=== PATIENT | male | born 1955 | race Caucasian/White ===

== ENCOUNTER 2021-01-02 02:04 | Day surgery (SDC) | payer OTHER, SELFPAY ==
[2020-12-18 09:25] VITALS: BMI 33.0
[2021-01-02 07:43] VITALS: BP 147/81; PULSE 76; RESP 16; TEMP 36.1; O2SAT 100; BMI 33.3
[2021-01-02] MEDS: LACTATED RINGERS 1,000 ML 150 ML IV CONT (07:53)
--- NOTE | 2021-01-02 08:09 | PM.HPGS ---
History of Present Illness History of Present Illness Consent: Risks, benefits, and alternatives have been discussed and questions answered. Patient agrees to proceed with procedure. Chief complaint: neoplasm screening, hx of colon polyps Narrative: Harley Willson is a 65 year old male with colon polyps, last colonoscopy about 10 years ago. Review of Systems Constitutional: Constitutional: Denies headache(s) and Denies weakness Eyes: Eyes: Denies blurry vision ENT: Reports Normal hearing present, Denies headache(s) and Denies neck pain Cardiovascular: Cardiovascular: Denies chest pain and Denies dyspnea Respiratory: Respiratory: Denies dyspnea Gastrointestinal: Gastrointestinal: Reports no additional gastrointestinal complaints Genitourinary: Genitourinary: Denies dysuria Musculoskeletal: Musculoskeletal: Denies neck pain Integumentary/Breasts: Skin/Breast: Denies dry skin Neurologic: Reports Normal hearing present, Denies headache(s) and Denies weakness Psychiatric: Psychiatric: Denies anxiety Endocrine: Endocrine: Denies change in body appearance Hematologic/Lymphatic: Hematologic/Lymphatic: Denies easy bleeding Allergic/Immunologic: Allergic/Immunologic: Denies urticaria PMFSH Past Medical History Medical History (Updated 01/02/21 @ 08:09 by Justin Palacio MD) Colon cancer screening Social History Social History Smoking packs per day: 1 Smoking cigarettes per day: 20.0 Years smoked: 5 Smoking pack-years: 5.00 Smoking status: Former smoker Tobacco type: cigarettes Alcohol intake: current Living arrangements: with family Spiritual care concerns: No Meds Home Medications and Allergies Home Medications Medication Instructions Recorded Confirmed Type losartan 100 mg PO DAILY 12/18/20 01/02/21 History Allergies Allergy/AdvReac Type Severity Reaction Status Date / Time cortisone Allergy Mild Swelling Verified 01/02/21 07:42 Vital Signs Vital Signs - 24 hr 01/02/21 07:43 Temperature 96.9 F L Pulse Rate 76 Respiratory Rate 16 Blood Pressure 147/81 H Pulse Oximetry 100 Exam Const: General: comfortable and no acute distress HENMT: General nose exam: Normal nares present Eyes: General: appearance normal, both eyes and all related structures Neck: Neck: no JVD Resp: Auscultation: clear to auscultation bilaterally Cardio: Rate: regular rate Rhythm: regular rhythm GI: Inspection: non-distended GI Palp: Yes Soft to palpation Skin: General skin exam: normal color Neuro: General: gait normal Speech: normal speech Extrem: General: normal to inspection Psych: Mental Status: mental status grossly normal Assessment and Plan Assessment and plan (1) Colon cancer screening: Code(s): Z12.11 - Encounter for screening for malignant neoplasm of colon Status: Acute Assessment and Plan: colonoscopy
--- NOTE | 2021-01-02 08:11 | P.PNAN_ITS ---
Anes - Initial Pre Proc Eval Procedure: Operation Date: 01/02/21 08:30 Proposed Procedures p Screening Colonoscopy - Justin Palacio MD Date/Time: 01/02/21 08:11 Surgeon: Justin Palacio MD Pre Op Diagnosis: neoplasm screening, hx of colon polyps Patient Data Age: 65 Gender: M Height: 1.78 m Weight: 105.2 kg Last Vital Signs Temp 96.9 F L 01/02/21 07:43 Pulse 76 01/02/21 07:43 Resp 16 01/02/21 07:43 BP 147/81 H 01/02/21 07:43 Pulse Ox 100 01/02/21 07:43 Allergies Allergy/AdvReac Type Severity Reaction Status Date / Time cortisone Allergy Mild Swelling Verified 01/02/21 07:42 Home Medications Medication Instructions Recorded Confirmed Type losartan 100 mg PO DAILY 12/18/20 01/02/21 History Patient hx anesthesia problems: none Family hx anesthesia problems: none Results Review: All pre-operative results and documents have been reviewed as part of the pre-operative evaluation. FORMERLY [facility], [facility] Past Medical History Medical History (Updated 01/02/21 @ 08:11 by Aleksandr Ramon MD) Colon cancer screening Hypertension Social History Social History Smoking packs per day: 1 Smoking cigarettes per day: 20.0 Years smoked: 5 Smoking pack-years: 5.00 Smoking status: Former smoker Tobacco type: cigarettes Alcohol intake: current Living arrangements: with family Spiritual care concerns: No Anes - Eval Final PreProcedure Day of Procedure 01/02/21 08:11 Patient weight: obese Heart: regular rate and rhythm Lungs: clear to auscultation Airway: Mallampati scale Neurological: alert and oriented Last oral intake: >/= 8 hours ASA classification: II Emergent: no Anesthetic plan: proceed Anesthesia type and monitoring: general GIVS and standard monitoring Results Review: All pre-operative results and documents have been reviewed as part of the pre-operative evaluation. Informed Consent: The patient's anesthetic plan and its attendant risks and benefits were discussed with the patient/family/POA. Questions were solicited and answers provided to the satisfaction of the patient/family/POA.
[2021-01-02 08:37] VITALS: BP 129/79; PULSE 69; RESP 16; O2SAT 99
--- NOTE | 2021-01-02 08:37 | SUR.OPER ---
DR BARRETO NOTIFIED THAT ONLY ONE ASCENDING COLON POLYPS OF THE TWO COLD SNARED WERE RETRIEVED, NO NEW ORDERS.
[2021-01-02 08:47] VITALS: BP 134/78; PULSE 62; RESP 16; O2SAT 100
== END 2021-01-02 09:08 | disposition home or self-care (01) ==
PROVIDERS: PCP Internal Medicine; Visit Provider Internal Medicine Gastroenterology
PROC: 0DJD8ZZ Inspection of Lower Intestinal Tract, Via Natural or Artificial Opening Endoscopic (ICD-10-PCS; CPT 45378; principal; 2021-01-02 08:30)
DX: Z12.11 Encounter for screening for malignant neoplasm of colon (principal); D12.2 Benign neoplasm of ascending colon; D12.3 Benign neoplasm of transverse colon; K63.5 Polyp of colon; K57.30 Diverticulosis of large intestine without perforation or abscess without bleeding; K64.8 Other hemorrhoids; I10 Essential (primary) hypertension; Z87.891 Personal history of nicotine dependence; E66.9 Obesity, unspecified; Z68.33 Body mass index [BMI] 33.0-33.9, adult
CPT/HCPCS: 45385; 88305; J2704; J7120

== ENCOUNTER 2024-04-23 02:30 | Day surgery (SDC) | payer OTHER, SELFPAY ==
[2024-04-09 12:09] VITALS: BMI 33.0
--- OUTSIDE RECORDS SUMMARY | 2024-04-23 02:37 | XMS_ITS | Continuity of Care Document ---
Author Organization [facility] Address [address] [place] [id number] Care Team Providers Care Hoof And Shoe Inspector Name Role Phone Gregory Kumar MD Primary Care Provider [phone] Encounters Date Type Department Care Team Description 03/16/2021 Orders Only [facility] [address] [place] [address] Gregory Kumar MD 03/16/2021 Travel 03/16/2021 1:40 PM HI TEACHER - 03/16/2021 11:59 PM HI TEACHER Hospital Encounter [facility] [address] [place] [address] Gregory Kumar MD Discharge Disposition: Home or Self Care (Routine Discharge) 04/07/2016 Abstract [facility] [address] [place] [address] Gregory Kumar MD 05/24/2011 Abstract [facility] [address] [place] [address] Timothy Bui MD 02/17/2009 Abstract [facility] [address] [place] [address] Timothy Bui MD 11/11/2008 Abstract [facility] [address] [place] [address] Timothy Bui MD 12/07/2006 Abstract [facility] CONVERSION [address] [place] [address] Domingo Pearce MD 05/25/2006 Abstract [facility] CONVERSION [address] [place] [address] Domingo Pearce MD 03/30/2006 Abstract [facility] CONVERSION [address] [place] [address] Domingo Pearce MD 03/25/2006 Abstract [facility] CON[facility] [address] [place] [address] Gregory Kumar MD 03/10/2006 Abstract [facility] CONVERSION [address] [place] [address] Adonis Schofield MD 03/08/2006 Abstract [facility] CONVERSION [address] [place] [address] Adonis Schofield MD 10/04/2005 Abstract [facility] CONVERSION [address] [place] [address] Gregory Kumar MD Social History Smoking Status as of 04/23/2024 Tobacco Use Types Packs/Day Years Used Date Smoking Tobacco: Never Assessed Sex and Gender Information Value Date Recorded Sex Assigned at Not on file Legal Sex Male 7:33 PM CDT Gender Identity Not on file Sexual Orientation Not on file Plan of Treatment Not on file Procedures Procedure Name Priority Date/Time Associated Diagnosis Comments CORONAVIRUS (COVID-19) ANTIGEN DIRECT OPTICAL Routine 03/16/2021 1:55 PM HI TEACHER Encntr for obs for susp expsr to [facility] agents ruled out Results * CORONAVIRUS (COVID-19) ANTIGEN DIRECT OPTICAL RAPID (03/16/2021 1:55 PM HI TEACHER) CORONAVIRUS ANTIGEN IA NEGATIVE NEGATIVE 03/16/2021 2:52 PM HI TEACHER [facility] Comment: NEGATIVE RESULTS DO NOT RULE OUT SARS-COV-2 INFECTION AND SHOULD NOT BE USED THE SOLE BASIS FOR TREATMENT OR PATIENT MANAGEMENT DECISIONS, INCLUDING INFECTION CONTROL DECISIONS. NEGATIVE RESULTS SHOULD BE CONSIDERED IN THE CONTEXT OF A PATIENT'S RECENT EXPOSURES, HISTORY AND THE PRESENCE OF CLINICAL SIGNS AND SYMPTOMS CONSISTENT WITH COVID 19. THIS TEST HAS BEEN AUTHORIZED BY THE FDA UNDER AN EMERGENCY USE AUTHORIZATION (EUA) FOR USE BY AUTHORIZED LABORATORIES. SPECIMEN TYPE NASAL 03/16/2021 1:50 PM HI TEACHER [facility] FIRST TEST NO 03/16/2021 1:50 PM HI TEACHER [facility] EMPLOYED IN HEALTHCARE NO 03/16/2021 1:50 PM HI TEACHER [facility] SYMPTOMATIC DEFINED BY CDC NO 03/16/2021 1:50 PM HI TEACHER [facility] HOSPITALIZATION STATUS NO 03/16/2021 1:50 PM HI TEACHER [facility] PATIENT IN ICU NO 03/16/2021 1:50 PM HI TEACHER [facility] RESIDENT OF [facility] NO 03/16/2021 1:50 PM HI TEACHER [facility] Specimen from nose (specimen) NASAL STRUCTURE / Unknown 03/16/2021 1:55 PM HI TEACHER us Gregory Kumar MD MICROBIOLOGY - GENERAL ORDERAB LES Final Result [facility] [address] [place] [address], Visit Diagnoses Diagnosis Start Date Chronic sinusitis Unspecified sinusitis (chronic) 04/07/2016 Encntr for obs for susp expsr to oth biolg agents ruled out 03/16/2021 Encntr for obs for susp expsr to oth biolg agents ruled out 03/16/2021 Care Teams Hoof And Shoe Inspector Relationship Specialty Start Date End Date Gregory Kumar MD [address] [place] [address] PCP - General INTERNAL MEDICINE 03/16/21
[2024-04-23 07:32] VITALS: BP 129/79; PULSE 84; RESP 20; TEMP 36.1; O2SAT 100; BMI 35.1
[2024-04-23] MEDS: LACTATED RINGERS 1,000 ML 150 ML IV CONT (07:56)
--- NOTE | 2024-04-23 08:20 | P.HP_ITS ---
History of Present Illness History of Present Illness Consent: Risks, benefits, and alternatives have been discussed and questions answered. Patient agrees to proceed with procedure. Chief complaint: personal hx of colons Narrative: Harley Willson is a 68 year old male with colon polyp in 2020 Review of Systems Review of Systems: All systems reviewed & are unremarkable except as noted in HPI and below PMFSH Past Medical History Medical History (Updated 04/23/24 @ 08:20 by Justin Palacio MD) Adenomatous colon polyp Encounter for screening for malignant neoplasm of prostate Hypertension Colon cancer screening Surgical History Surgical History (Updated 11/07/23 @ 11:28 by Ning Solo PA-C) History of eye surgery repair macular hole 08/15/23 History of colonoscopy 01/02/21 Family History Family History Father Acute myocardial infarction Social History Social History Social History: patient declined SDOH 11/04/23 Smoking packs per day: 1 Smoking cigarettes per day: 20.0 Years smoked: 5 Smoking pack-years: 5.00 Smoking status: Former smoker Tobacco type: cigarettes Alcohol intake: current Alcohol use details: wine with dinner occas Substance use: never Substance use type: does not use Lack of Transportation: No Lack of Food: Never True Current Housing: I Have Housing Concerned About Future Housing: No Difficulty Paying Gas/Electric Bills: No Difficulty Paying for Meds: No Currently Unemployed: No Education: Don't Know Living arrangements: with family Occupation/Education: occupation 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: No Agree to blood products: Yes Meds Home Medications and Allergies Home Medications ?Medication ?Instructions ?Recorded ?Confirmed ?Type losartan 100 mg tablet 100 mg PO DAILY #90 tabs 11/07/23 04/23/24 Rx Allergies Allergy/AdvReac Type Severity Reaction Status Date / Time cortisone Allergy Mild Swelling Verified 04/23/24 07:39 Vital Signs Vital Signs - 24 hr 04/23/24 07:32 Temperature 97.0 F L Pulse Rate 84 Respiratory Rate 20 Blood Pressure 129/79 Pulse Oximetry 100 Oxygen Delivery Room Air Exam Const: General: comfortable and no acute distress HENMT: Face/Nose/Sinus: Normal nares present Eyes: General: appearance normal, both eyes and all related structures Neck: Neck: no JVD Resp: Auscultation: clear to auscultation bilaterally Cardio: Rate: regular rate Rhythm: regular rhythm GI: Inspection: non-distended GI Palp: Yes Soft to palpation Skin: General skin exam: normal color Neuro: General: gait normal Speech: normal speech Extrem: General: normal to inspection Psych: Mental Status: mental status grossly normal Assessment and Plan Assessment and plan (1) Adenomatous colon polyp: Code(s): D12.6 - Benign neoplasm of colon, unspecified Status: Acute Assessment and Plan: colonoscopy
--- NOTE | 2024-04-23 08:22 | WPDANESEPPF ---
Anes - Initial Pre Proc Eval Procedure: Operation Date: 04/23/24 09:00 Proposed Procedures p Screening Colonoscopy - Justin Palacio MD Date/Time: 04/23/24 08:22 Surgeon: Justin Palacio MD Pre Op Diagnosis: personal hx of colons Patient Data Age: 68 Gender: M Height: 1.78 m Weight: 111.1 kg Last Vital Signs Temp 97.0 F L 04/23/24 07:32 Pulse 84 04/23/24 07:32 Resp 20 04/23/24 07:32 BP 129/79 04/23/24 07:32 Pulse Ox 100 04/23/24 07:32 O2 Del Method Room Air 04/23/24 07:32 Allergies Allergy/AdvReac Type Severity Reaction Status Date / Time cortisone Allergy Mild Swelling Verified 04/23/24 07:39 Home Medications ?Medication ?Instructions ?Recorded ?Confirmed ?Type losartan 100 mg tablet 100 mg PO DAILY #90 tabs 11/07/23 04/23/24 Rx Patient hx anesthesia problems: none Family hx anesthesia problems: none Results Review: All pre-operative results and documents have been reviewed as part of the pre-operative evaluation. [facility] Past Medical History Medical History Adenomatous colon polyp Encounter for screening for malignant neoplasm of prostate Hypertension Colon cancer screening Surgical History Surgical History History of eye surgery repair macular hole 08/15/23 History of colonoscopy 01/02/21 Family History Family History Father Acute myocardial infarction Social History Social History Social History: patient declined SDVT 11/04/23 Smoking packs per day: 1 Smoking cigarettes per day: 20.0 Years smoked: 5 Smoking pack-years: 5.00 Smoking status: Former smoker Tobacco type: cigarettes Alcohol intake: current Alcohol use details: wine with dinner occas Substance use: never Substance use type: does not use Lack of Transportation: No Lack of Food: Never True Current Housing: I Have Housing Concerned About Future Housing: No Difficulty Paying Gas/Electric Bills: No Difficulty Paying for Meds: No Currently Unemployed: No Education: Don't Know Living arrangements: with family Occupation/Education: occupation 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 HTN. Informed Consent: The patient's anesthetic plan and its attendant risks and benefits were discussed with the patient/family/POA. Questions were solicited and answers provided to the satisfaction of the patient/family/POA.
[2024-04-23 08:41] VITALS: BP 123/77; PULSE 74; RESP 17; O2SAT 98
[2024-04-23 08:51] VITALS: BP 127/80; PULSE 73; RESP 16; O2SAT 99
[2024-04-23 09:01] VITALS: BP 114/79; PULSE 66; RESP 17; O2SAT 99
== END 2024-04-23 09:16 | disposition home or self-care (01) ==
PROVIDERS: PCP Physician Assistant Medical; Visit Provider Internal Medicine Gastroenterology
PROC: 0DJD8ZZ Inspection of Lower Intestinal Tract, Via Natural or Artificial Opening Endoscopic (ICD-10-PCS; CPT 45378; principal; 2024-04-23 09:00)
DX: Z12.11 Encounter for screening for malignant neoplasm of colon (principal); D12.0 Benign neoplasm of cecum; D12.2 Benign neoplasm of ascending colon; K57.30 Diverticulosis of large intestine without perforation or abscess without bleeding; K64.8 Other hemorrhoids; Z87.891 Personal history of nicotine dependence; E66.9 Obesity, unspecified; Z68.35 Body mass index [BMI] 35.0-35.9, adult
CPT/HCPCS: 45380; 88305; J2003; J2704; J7120